=== PATIENT | male | born 1930 | race Caucasian/White ===

== ENCOUNTER 2016-12-17 08:00 | Outpatient (CLI) | payer MEDICARE | END 2016-12-17 08:01 | disposition home or self-care (01) | DX: I48.91 Unspecified atrial fibrillation (principal) ==

== ENCOUNTER 2016-12-24 08:00 | Outpatient (CLI) | payer MEDICARE | END 2016-12-24 08:01 | disposition home or self-care (01) | DX: I48.91 Unspecified atrial fibrillation (principal) ==

== ENCOUNTER 2017-01-07 11:50 | Outpatient (CLI) | payer MEDICARE | END 2017-01-07 11:51 | disposition home or self-care (01) | DX: I48.91 Unspecified atrial fibrillation (principal) ==

== ENCOUNTER 2017-01-21 08:00 | Outpatient (CLI) | payer MEDICARE | END 2017-01-21 08:01 | disposition home or self-care (01) | LOC: LAB.N 08:00 | PROVIDERS: ATTEND Emergency Medicine | DX: I48.91 Unspecified atrial fibrillation (principal) | CPT/HCPCS: 85610 ==

== ENCOUNTER 2017-01-28 10:42 | Outpatient (CLI) | payer MEDICARE | END 2017-01-28 10:43 | disposition home or self-care (01) | DX: I48.91 Unspecified atrial fibrillation (principal) ==

== ENCOUNTER 2017-02-11 10:35 | Outpatient (CLI) | payer MEDICARE | END 2017-02-11 10:36 | disposition home or self-care (01) | DX: I48.91 Unspecified atrial fibrillation (principal) ==

== ENCOUNTER 2017-04-01 11:18 | Outpatient (CLI) | payer MEDICARE | END 2017-04-01 11:19 | disposition home or self-care (01) | LOC: LAB.N 11:18 | PROVIDERS: ATTEND Emergency Medicine | DX: I48.91 Unspecified atrial fibrillation (principal) | CPT/HCPCS: 85610 ==

== ENCOUNTER 2017-04-29 11:02 | Outpatient (CLI) | payer MEDICARE | END 2017-04-29 11:03 | disposition home or self-care (01) | LOC: LAB.N 11:02 | PROVIDERS: ATTEND Emergency Medicine | DX: I48.91 Unspecified atrial fibrillation (principal) | CPT/HCPCS: 85610 ==

== ENCOUNTER 2017-06-24 15:38 | Outpatient (CLI) | payer MEDICARE | END 2017-06-24 15:39 | disposition home or self-care (01) | LOC: LAB.N 15:38 | PROVIDERS: ATTEND Emergency Medicine | DX: I48.91 Unspecified atrial fibrillation (principal) | CPT/HCPCS: 85610 ==

== ENCOUNTER 2017-07-05 10:56 | Outpatient (CLI) | payer MEDICARE | END 2017-07-05 10:57 | disposition home or self-care (01) | LOC: LAB.N 10:56 | PROVIDERS: ATTEND Emergency Medicine | DX: I48.91 Unspecified atrial fibrillation (principal) | CPT/HCPCS: 85610 ==

== ENCOUNTER 2017-08-27 14:55 | Outpatient (CLI) | payer MEDICARE | END 2017-08-27 14:56 | disposition home or self-care (01) | LOC: LAB.N 14:55 | PROVIDERS: ATTEND Emergency Medicine | DX: I48.91 Unspecified atrial fibrillation (principal) | CPT/HCPCS: 85610 ==

== ENCOUNTER 2017-09-16 15:00 | Outpatient (CLI) | payer MEDICARE | END 2017-09-16 15:01 | disposition home or self-care (01) | LOC: LAB.N 15:00 | PROVIDERS: ATTEND Emergency Medicine | DX: I48.91 Unspecified atrial fibrillation (principal) | CPT/HCPCS: 85610 ==

== ENCOUNTER 2017-10-14 08:00 | Outpatient (CLI) | payer MEDICARE | END 2017-10-14 08:01 | disposition home or self-care (01) | LOC: LAB.N 08:00 | PROVIDERS: ATTEND Emergency Medicine | DX: I48.91 Unspecified atrial fibrillation (principal) | CPT/HCPCS: 85610 ==

== ENCOUNTER 2017-10-28 10:09 | Outpatient (CLI) | payer MEDICARE | END 2017-10-28 10:10 | disposition home or self-care (01) | LOC: LAB.N 10:09 | PROVIDERS: ATTEND Emergency Medicine | DX: I48.91 Unspecified atrial fibrillation (principal) | CPT/HCPCS: 85610 ==

== ENCOUNTER 2017-11-18 08:00 | Outpatient (CLI) | payer MEDICARE | END 2017-11-18 08:01 | disposition home or self-care (01) | LOC: LAB.N 08:00 | PROVIDERS: ATTEND Emergency Medicine | DX: I48.91 Unspecified atrial fibrillation (principal) | CPT/HCPCS: 85610 ==

== ENCOUNTER 2017-12-16 10:18 | Outpatient (CLI) | payer MEDICARE | END 2017-12-16 10:19 | disposition home or self-care (01) | LOC: LAB.N 10:18 | PROVIDERS: ATTEND Emergency Medicine | DX: I48.91 Unspecified atrial fibrillation (principal) | CPT/HCPCS: 85610 ==

== ENCOUNTER 2018-01-14 13:58 | Outpatient (CLI) | payer MEDICARE | END 2018-01-14 13:59 | disposition home or self-care (01) | LOC: LAB.N 13:58 | PROVIDERS: ATTEND Emergency Medicine | DX: I48.91 Unspecified atrial fibrillation (principal) | CPT/HCPCS: 85610 ==

== ENCOUNTER 2018-03-08 08:00 | Outpatient (CLI) | END 2018-03-08 08:01 | disposition home or self-care (01) ==

== ENCOUNTER 2018-04-05 08:00 | Outpatient (CLI) | payer MEDICARE | END 2018-04-05 08:01 | disposition home or self-care (01) | LOC: LAB.N 08:00 | PROVIDERS: ATTEND Emergency Medicine | DX: I48.91 Unspecified atrial fibrillation (principal) | CPT/HCPCS: 85610 ==

== ENCOUNTER 2018-05-31 10:39 | Outpatient (CLI) | payer MEDICARE | END 2018-05-31 10:40 | disposition home or self-care (01) | LOC: LAB.N 10:39 | PROVIDERS: ATTEND Emergency Medicine | DX: I48.91 Unspecified atrial fibrillation (principal) | CPT/HCPCS: 85610 ==

== ENCOUNTER 2018-06-16 09:53 | Outpatient (CLI) | payer MEDICARE | END 2018-06-16 09:54 | disposition home or self-care (01) | LOC: LAB.N 09:53 | PROVIDERS: ATTEND Emergency Medicine | DX: I48.91 Unspecified atrial fibrillation (principal) | CPT/HCPCS: 85610 ==

== ENCOUNTER 2018-06-30 09:32 | Outpatient (CLI) | payer MEDICARE | END 2018-06-30 09:33 | disposition home or self-care (01) | LOC: LAB.N 09:32 | PROVIDERS: ATTEND Emergency Medicine | DX: I48.91 Unspecified atrial fibrillation (principal) | CPT/HCPCS: 85610 ==

== ENCOUNTER 2018-09-12 08:00 | Outpatient (CLI) | payer MEDICARE | END 2018-09-12 23:59 | disposition home or self-care (01) | LOC: LAB.N 08:00 | PROVIDERS: ATTEND Emergency Medicine | DX: I48.91 Unspecified atrial fibrillation (principal) | CPT/HCPCS: 85610 ==

== ENCOUNTER 2018-10-11 08:00 | Outpatient (CLI) | payer MEDICARE | END 2018-10-11 23:59 | disposition home or self-care (01) | LOC: LAB.N 08:00 | PROVIDERS: ATTEND Emergency Medicine | DX: I48.91 Unspecified atrial fibrillation (principal) | CPT/HCPCS: 85610 ==